=== PATIENT | female | born 1990 | race Caucasian/White ===

== ENCOUNTER 2016-08-23 23:37 | Emergency (ER) | payer SELFPAY ==
[~2016-08-23] VITALS: Ht 182.9 cm; Wt 129.0 kg
[~2016-08-23 23:37] MED LIST: ADIPEX-P37.5 M1 PO; AMOXICILLIN500 MG PO; ATORVASTATIN CA20 MG PO; MEDROL DOSEPAK4 MG PO; NAPROSYN500 MG PO; NOHOMEMEDS; PEN-VEE K,VEET500 MG PO; ROPINIROLE HCL2 M1 PO; TOPIRAMATE50 MG PO; TRAMADOL HCL50 MG PO
[2016-08-24 00:09] LABS: ADD MIUA? NO; BILIRUBIN NEGATIVE; BLOOD NEGATIVE; COLOR YELLOW ((YELLOW)); GLUCOSE (STRIP) NEGATIVE; KETONES NEGATIVE; LEUKOCYTES NEGATIVE; NITRITE NEGATIVE; PROTEIN (STRIP) NEGATIVE; SPECIFIC GRAVITY 1.003 (1.000-1.030); UCUL ADDED? NO; UROBILINOGEN 0.2 MG/DL (0.2-1.0)
[2016-08-24 00:21] LABS: HEMATOCRIT 42.6 % (36.0-46.0); MCH 32.1 PG (29.0-34.0); MCHC 35.4 G/DL (30.0-36.0); MCV 90.4 FL (83-99); MEAN PLAT.VOLUME 11.3 uM^3 (9.5-12.4); PLATELET COUNT 211 K/uL (156-360); RBC DIS.WIDTH-CV 11.7 % (11.8-14.6); RBC DIS.WIDTH-SD 37.7 % (39-53); RED BLOOD COUNT 4.71 M/uL (3.80-5.20); WHITE BLOOD COUNT 6.8 K/uL (4.1-10.2)
[2016-08-24 00:34] LABS: CHLORIDE 109 mEq/L (99-109); POTASSIUM 3.8 mEq/L (3.7-5.4); SODIUM 141 mEq/L (136-147)
[2016-08-24 00:36] LABS: GLUCOSE 102 mg/dL (70-99)
[2016-08-24 00:37] LABS: ANION GAP 8 MEQ/L (2-14)
[2016-08-24 00:38] LABS: TOTAL BILIRUBIN 0.5 mg/dL (0.0-1.0)
[2016-08-24 00:39] LABS: ALKALINE PHOSPHATASE 57 IU/L (3-129)
[2016-08-24 00:40] LABS: GFR ESTIMATE (CALCULATED) > 59 mL/min/
[2016-08-24 00:41] LABS: UREA NITROGEN (BUN) 11 mg/dL (9-23)
[2016-08-24 00:48] LABS: QUANTITATIVE HCG < 4.0 MIU/ML
[2016-08-24 01:13] VITALS: BP 161/85
== END 2016-08-24 01:14 | disposition home or self-care (01) ==
LOC: RME 23:37 → EME 23:37 → RME 08-24 01:14
PROVIDERS: Physician Assistant
DX: R10.2 Pelvic and perineal pain (principal); N92.6 Irregular menstruation, unspecified; F17.210 Nicotine dependence, cigarettes, uncomplicated
CPT/HCPCS: 76856; 80053; 81003; 84702; 85027; 99281; 99283

== ENCOUNTER 2017-06-12 10:57 | Inpatient (IN) | payer OTHER ==
[~2017-06-12] VITALS: Ht 182.9 cm; Wt 130.2 kg
[2017-06-12 12:18] LABS: BASOPHIL COUNT 0.1 K/uL (0-0.1); EOSINOPHIL (%) 2.2 % (0-5); EOSINOPHIL COUNT 0.1 K/uL (0-0.3); HEMATOCRIT 44.1 % (36.0-46.0); IMMATURE GRANULOCYTE (%) 0.3 % (0.0-0.7); LYMPHOCYTE COUNT 1.3 K/uL (1.0-2.8); MCH 31.6 PG (29.0-34.0); MCHC 34.2 G/DL (30.0-36.0); MCV 92.3 FL (83-99); MEAN PLAT.VOLUME 11.4 uM^3 (9.5-12.4); MONOCYTE (%) 8.2 % (3-12); MONOCYTE COUNT 0.5 K/uL (0-0.8); NEUTROPHIL (%) 66.9 % (45-76); PLATELET COUNT 214 K/uL (156-360); RBC DIS.WIDTH-CV 11.4 % (11.8-14.6); RBC DIS.WIDTH-SD 38.9 % (39-53); RED BLOOD COUNT 4.78 M/uL (3.80-5.20)
[2017-06-12 12:22] LABS: ADD MIUA? YES; BILIRUBIN NEGATIVE; BLOOD LARGE; COLOR YELLOW ((YELLOW)); GLUCOSE (STRIP) 50; KETONES NEGATIVE; LEUKOCYTES NEGATIVE; NITRITE NEGATIVE; PROTEIN (STRIP) 30; SPECIFIC GRAVITY 1.019 (1.000-1.030); UROBILINOGEN 0.2 MG/DL (0.2-1.0)
[2017-06-12 12:27] LABS: BACTERIA RARE /HPF; EPITHELIAL CELLS 1+ /HPF; MUCUS TRACE /LPF; RED BLOOD CELLS TNTC /HPF (0-5); WHITE BLOOD CELLS 0-5 /HPF (0-5)
[2017-06-12 12:27] LABS: CHLORIDE 106 mEq/L (99-109); POTASSIUM 4.3 mEq/L (3.7-5.4); SODIUM 140 mEq/L (136-147)
[2017-06-12 12:31] LABS: ANION GAP 9 MEQ/L (2-14)
[2017-06-12 12:31] LABS: AMPHETAMINE NEGATIVE (500 ng/mL); BARBITURATES NEGATIVE (200 ng/mL); BENZODIAZEPINES NEGATIVE (150 ng/mL); COCAINE NEGATIVE (150 ng/mL); METHADONE NEGATIVE (200 ng/mL); METHAMPHETAMINE NEGATIVE (500 ng/mL); OPIATES (MORPHINE) NEGATIVE (100 ng/mL); OXYCODONE NEGATIVE (100 ng/mL); PHENCYCLIDINE NEGATIVE (25 ng/mL); PROPOXYPHENE NEGATIVE (300 ng/mL); THC CANNABINOIDS NEGATIVE (50 ng/mL); TRICYCLIC ANTIDEPRESSANTS NEGATIVE (300 ng/mL)
[2017-06-12 12:32] LABS: TOTAL BILIRUBIN 0.3 mg/dL (0.0-1.0)
[2017-06-12 12:32] LABS: INTERNAL CONTROLS VALID? YES
[2017-06-12 12:33] LABS: SERUM ETHYL ALCOHOL < 10 mg/dL
[2017-06-12 12:35] LABS: DIRECT BILIRUBIN 0.1 mg/dL (0.0-0.3)
[2017-06-12 12:54] LABS: GLUCOSE 110 mg/dL (70-99)
[2017-06-12 12:58] LABS: ALKALINE PHOSPHATASE 64 IU/L (3-129); GFR ESTIMATE (CALCULATED) > 59 mL/min/
[2017-06-12 13:00] LABS: UREA NITROGEN (BUN) 14 mg/dL (9-23)
[2017-06-12 13:01] LABS: SALICYLATE < 5.0 MG/DL (15-30)
[2017-06-12 13:07] LABS: QUANTITATIVE HCG < 4.0 MIU/ML
[2017-06-12 14:00] VITALS: BP 153/67
[2017-06-12 15:15] VITALS: BP 125/58
[2017-06-13 07:27] VITALS: BP 95/49
[2017-06-13 15:19] VITALS: BP 116/58
[2017-06-14 07:43] VITALS: BP 111/65
[2017-06-14 15:54] VITALS: BP 121/60
[2017-06-15 07:45] VITALS: BP 117/71
[2017-06-15 15:55] VITALS: BP 129/69
[2017-06-16 07:49] VITALS: BP 118/59
[2017-06-16] MEDS ORDERED: ARIPIPRAZOLE10 MG PO (08:55)
[2017-06-16] MEDS ORDERED: BUSPAR5 MG PO (08:55)
== END 2017-06-16 12:35 | disposition home or self-care (01) | DRG 885 ==
LOC: EME 10:57 → ENRESERV 13:25 → EDOF 13:29 → 1WEST 13:29
PROVIDERS: Emergency Medicine
DX: F33.9 Major depressive disorder, recurrent, unspecified (principal); F60.9 Personality disorder, unspecified; E66.01 Morbid (severe) obesity due to excess calories; R45.851 Suicidal ideations; F43.10 Post-traumatic stress disorder, unspecified; F17.200 Nicotine dependence, unspecified, uncomplicated; E28.2 Polycystic ovarian syndrome; Z59.0 Homelessness; Z91.5 Personal history of self-harm; F12.10 Cannabis abuse, uncomplicated
CPT/HCPCS: 80048; 80076; 81003; 84702; 85025; 90686; 90839; 97150 GO; 99281; 99285; G0480; Q0177

== ENCOUNTER 2017-07-11 19:46 | Emergency (ER) | payer OTHER ==
[~2017-07-11] VITALS: Ht 182.9 cm; Wt 132.8 kg
[~2017-07-11 19:46] MED LIST changes: +ARIPIPRAZOLE10 MG PO; +BUSPAR5 MG PO
[2017-07-11] MEDS ORDERED: KEFLEX500 MG PO (23:54)
[2017-07-12 00:16] VITALS: BP 120/74
== END 2017-07-12 00:16 | disposition home or self-care (01) ==
LOC: EME 19:46
DX: S71.112A Laceration without foreign body, left thigh, initial encounter (principal); L08.9 Local infection of the skin and subcutaneous tissue, unspecified; W22.03XA Walked into furniture, initial encounter
CPT/HCPCS: 99281; 99283

== ENCOUNTER 2017-09-01 17:48 | Emergency (ER) | payer OTHER ==
[~2017-09-01] VITALS: Ht 182.9 cm; Wt 134.7 kg
[~2017-09-01 17:48] MED LIST changes: +KEFLEX500 MG PO
[2017-09-01 20:36] LABS: APPEARANCE SL.HAZY ((CLEAR)); BILIRUBIN NEGATIVE; BLOOD NEGATIVE; COLOR YELLOW ((YELLOW)); GLUCOSE (STRIP) 50; KETONES NEGATIVE; LEUKOCYTES LARGE; NITRITE NEGATIVE; PROTEIN (STRIP) NEGATIVE; UROBILINOGEN 0.2 MG/DL (0.2-1.0)
[2017-09-01 20:43] LABS: BACTERIA RARE /HPF; EPITHELIAL CELLS 1+ /HPF; MUCUS TRACE /LPF; RED BLOOD CELLS 0-5 /HPF (0-5); UCUL ADDED? NO; WHITE BLOOD CELLS 0-5 /HPF (0-5)
[2017-09-01] MEDS ORDERED: PREDNISONE20 MG PO (22:21)
[2017-09-01] MEDS ORDERED: MOTRIN800 MG PO (22:21)
[2017-09-01] MEDS ORDERED: LIDODERM 5% P1 PATCH TD (22:21)
[2017-09-01] MEDS ORDERED: FLEXERIL10 MG PO (22:21)
[2017-09-01 22:47] VITALS: BP 135/79
== END 2017-09-01 22:47 | disposition home or self-care (01) ==
LOC: EME 17:48
PROVIDERS: Nurse Practitioner Family
DX: M54.5 Low back pain (principal); F41.9 Anxiety disorder, unspecified; F32.9 Major depressive disorder, single episode, unspecified; F17.200 Nicotine dependence, unspecified, uncomplicated
CPT/HCPCS: 72100; 81003; 99281; 99284; J1885; J7512